=== PATIENT | male | born 1940 | race Caucasian/White ===

== ENCOUNTER → 2019-07-17 | Outpatient (CLI) | payer OTHER, BC ==
[2019-07-17 11:50] LABS: CREATININE 1.2 mg/dL (0.7-1.3)
== END ==
LOC: CAT 08:54 → SJCVCIMAG 08:54
PROVIDERS: Internal Medicine
DX: I65.23 Occlusion and stenosis of bilateral carotid arteries (principal); E04.2 Nontoxic multinodular goiter; I71.4 Abdominal aortic aneurysm, without rupture; I10 Essential (primary) hypertension; I73.9 Peripheral vascular disease, unspecified; I25.10 Atherosclerotic heart disease of native coronary artery without angina pectoris; E78.00 Pure hypercholesterolemia, unspecified; E11.9 Type 2 diabetes mellitus without complications

== ENCOUNTER → 2019-08-13 | Outpatient (CLI) | payer OTHER ==
[2019-08-13 10:37] LABS: CREATININE 1.3 mg/dL (0.7-1.3)
== END ==
LOC: CAT 08:34
PROVIDERS: ATTEND Family Medicine
DX: R59.0 Localized enlarged lymph nodes (principal); M25.78 Osteophyte, vertebrae

== ENCOUNTER → 2020-04-07 | Outpatient (CLI) | payer OTHER, BC ==
[~2020-04-07] MED LIST: ACETAMINOPHEN500 MG PO; ANDROGEL1.25 GM TOP; ASA81BEC PO; BYSTOLIC 5 MG5 MG PO; GLUMETZA500 PO; LIPITOR40 MG PO; LISINOPRIL-HCT1 EAC1 PO; PROTONIX40 M2 PO; TRAMADOL 50 MG50 MG PO; ULTRAM 50MG TAB50 MG PO; VITAMIN D325 MC3 PO
== END ==
LOC: LAB 09:45
PROVIDERS: ATTEND Specialist
DX: Z01.812 Encounter for preprocedural laboratory examination (principal); Z20.822 Contact with and (suspected) exposure to COVID-19

== ENCOUNTER → 2020-04-11 | Outpatient (CLI) | payer OTHER, BC ==
[~2020-04-11] VITALS: Ht 172.7 cm; Wt 95.3 kg
--- NOTE | 2020-04-15 16:06 | PATH ---
[facility] [place] [address] PATHOLOGY RPT PROCEDURE Name: SANDER EWING Room #: REG UZAIR MLuciano.#: [id number] Admission: 04/11/20 Date of : 44 Discharge: Report #: [id number] Path Case #: [id number] [facility] Accession Number: [id number] . 01 Material submitted: . colon - DESCENDING COLON POLYP. Modifiers: descending . 01 Clinical history: . HX OF POLYPS . 02 Diagnosis: Polyp, descending colon polyp, endoscopic biopsy: - Hyperplastic polyp. - Negative for dysplasia. . (IUV:mml; 04/15/2020) [facility] 04/15/2020 1328 Local . 02 Electronically signed: . Sarah Taylor MD, Pathologist NPI- [id number] . 01 Gross description: . The specimen is received in formalin, labeled "Sander Ewing, biopsy descending colon polyp". Received are three segments of pale jara soft tissue ranging in size from 0.1 to 0.3 cm in maximum dimensions. The specimen is submitted entirely in cassette A1. (CAA; 04/14/2020) QAC/QAC 04/14/2020 1101 Local . 02 Pathologist provided ICD-10: K63.5 . 02 CPT . 958402 Specimen Comment: A courtesy copy of this report has been sent to [phone] Specimen Comment: Report sent to Performed at: [address] [id number] MD Hossein Enrique MD Phone: [phone] Performed at: [address] [id number] MD Sarah Taylor MD Phone: [phone]
--- NOTE | 2020-04-16 08:07 | P ---
[facility] [place] [address] [address] PROCEDURE REPORT Name: SANDER MUHAMMAD Room #: REG UZAIR Acosta#: [id number] Admission: 04/11/20 Attend Phys: Steve Coats Discharge: Date of : 44 Report #: [id number] THIS REPORT FOR: cc: Miguel Ángel Man James A. DO McElhinney, Christian C. MD ~ DATE OF SERVICE: 04/11/2020 PROCEDURE PERFORMED: Colonoscopy with biopsies. HISTORY OF PRESENT ILLNESS: The patient is a 79-year-old male with a history of polyps, last colonoscopy approximately 10 years ago. Denies any symptoms. No family history of colon cancer. DESCRIPTION OF PROCEDURE: The risks and benefits of the procedure were explained to the patient, those risks including but not limited to bleeding, perforation and the risk of sedation. He understood these risks and gave informed consent. Sedation was given using propofol per anesthesia. Next, a digital rectal exam was initially performed, which was normal. Next, using a standard Olympus colonoscope. The scope was placed in the patient's anus and advanced under direct vision to the cecum. The overall prep was good. The cecum and ileocecal valve were normal in appearance. Ascending and transverse colon were normal. In the descending colon, a 3 mm sessile polyp was noted. This was removed with cold forceps, otherwise normal. A few small scattered diverticula were noted in the sigmoid colon, no evidence of inflammation, otherwise normal. The rectal mucosa was normal. On retroflexion, no abnormalities were noted. The scope was then withdrawn and the procedure terminated. The patient tolerated the procedure well. IMPRESSION: 1. Small colonic polyp. 2. Sigmoid diverticulosis. 3. Otherwise, normal colonoscopy. RECOMMENDATIONS: 1. Await biopsy results. 2. If polyp is hyperplastic, repeat in 10 years; if adenomatous polyp, repeat in 5 years. Thank you for allowing me to participate in his care. <ELECTRONICALLY SIGNED> By: Steve Goodman MD 04/16/20 0807 [id number] [id number] Steve Goodman MD /nt
== END | disposition home or self-care (01) ==
LOC: GI 07:51
PROVIDERS: ATTEND Specialist
DX: Z12.11 Encounter for screening for malignant neoplasm of colon (principal); Z86.010 Personal history of colon polyps; K63.5 Polyp of colon; K57.30 Diverticulosis of large intestine without perforation or abscess without bleeding; I10 Essential (primary) hypertension; E78.00 Pure hypercholesterolemia, unspecified; K21.9 Gastro-esophageal reflux disease without esophagitis; E11.9 Type 2 diabetes mellitus without complications; Z96.653 Presence of artificial knee joint, bilateral; Z96.611 Presence of right artificial shoulder joint; Z96.612 Presence of left artificial shoulder joint; Z87.19 Personal history of other diseases of the digestive system
CPT/HCPCS: 62110; 62900

== ENCOUNTER → 2020-04-29 | Outpatient (CLI) | payer OTHER, BC ==
[2020-04-29 08:37] LABS: CREATININE 1.6 mg/dL (0.7-1.3)
== END ==
LOC: SJCVCIMAG 07:24 → LAB 07:24 → SJCVCIMAG 07:42
PROVIDERS: ATTEND Nuclear Medicine Nuclear Cardiology
DX: I65.23 Occlusion and stenosis of bilateral carotid arteries (principal); R00.1 Bradycardia, unspecified; I71.4 Abdominal aortic aneurysm, without rupture; I77.9 Disorder of arteries and arterioles, unspecified; I25.10 Atherosclerotic heart disease of native coronary artery without angina pectoris; E78.00 Pure hypercholesterolemia, unspecified; E11.22 Type 2 diabetes mellitus with diabetic chronic kidney disease; I12.9 Hypertensive chronic kidney disease with stage 1 through stage 4 chronic kidney disease, or unspecified chronic kidney disease; N18.9 Chronic kidney disease, unspecified; Z86.16 Personal history of COVID-19; E78.5 Hyperlipidemia, unspecified; Z95.828 Presence of other vascular implants and grafts; Z88.8 Allergy status to other drugs, medicaments and biological substances; Z79.84 Long term (current) use of oral hypoglycemic drugs; Z79.82 Long term (current) use of aspirin; Z79.899 Other long term (current) drug therapy; Z82.49 Family history of ischemic heart disease and other diseases of the circulatory system

== ENCOUNTER 2020-12-20 16:36 | Inpatient (IN) | payer OTHER, BC ==
[~2020-12-20] VITALS: Ht 170.2 cm; Wt 99.8 kg
[2020-12-20 16:48] VITALS: BP 118/79
[2020-12-20 17:33] LABS: ABSOLUTE NEUTROPHILS 3.3 thou/uL (1.4-8.2); BASOPHILS 0.2 % (0.0-2.0); EOSINOPHILS 1.2 % (0.0-3.0); HEMATOCRIT 45.5 % (42.0-52.0); HEMOGLOBIN 15.2 gm/dL (14.0-18.0); LYMPHOCYTES 15.9 % (24.0-44.0); MCH 31.2 pg (26.0-34.0); MCHC 33.3 g/dL (28.0-37.0); MCV 93.4 fL (80.0-100.0); PLATELET COUNT 162 thou/uL (150-400); POLYS 71.7 % (36.0-66.0); RBC 4.87 mil/uL (4.50-6.00); RDW 14.7 % (10.5-14.5); WBC 4.6 thou/uL (4.0-11.0)
[2020-12-20 17:38] LABS: CALCIUM 8.9 mg/dL (8.5-10.1); CREATININE 1.5 mg/dL (0.7-1.3)
[2020-12-20 17:44] LABS: ALBUMIN 3.2 g/dL (3.4-5.0); TOTAL BILIRUBIN 0.7 mg/dL (0.2-1.0); TOTAL PROTEIN 8.1 g/dL (6.4-8.2)
[2020-12-20 21:29] VITALS: BP 108/59
--- NOTE | 2020-12-20 23:02 | NUR ---
PT CONTINUES ON 2.0 LITERS N/C. HE IS RELAXED WITH HIS BREATHING. REQUESTED A SNACK. HE IS TAKING SOME YOGURT AND CHICKEN BROTH. ORIENTED TO ROOM AND SURROUNDINGS. CAREPLAN INITIATED. INSTRUCTED TO USE THE URINAL. INSTRUCTED TO CALL FOR ASSIST OUT OF BED.
[2020-12-21] VITALS (7 sets, daily range): BP systolic 119–169; BP diastolic 61–81
[2020-12-21 03:55] LABS: CALCIUM 8.6 mg/dL (8.5-10.1); CREATININE 1.4 mg/dL (0.7-1.3); POTASSIUM 4.2 mmol/L (3.5-5.1)
[2020-12-21 04:12] LABS: CHOLESTEROL 125 mg/dL (<200); HDL CHOLESTEROL 30 mg/dL (>40); LDL CHOLESTEROL 65 mg/dL (<100); TC:HDL 4.2 Ratio (Not establshd); TRIGLYCERIDE 151 mg/dL (<150); VLDL 30 mg/dL (<40)
[2020-12-21 04:13] LABS: SERUM ASSESSMENT Clear
[2020-12-21 04:35] LABS: HEMATOCRIT 44.1 % (42.0-52.0); HEMOGLOBIN 14.6 gm/dL (14.0-18.0); MCH 31.4 pg (26.0-34.0); MCHC 33.1 g/dL (28.0-37.0); MCV 94.9 fL (80.0-100.0); RBC 4.65 mil/uL (4.50-6.00); RDW 14.9 % (10.5-14.5); WBC 2.4 thou/uL (4.0-11.0)
--- NOTE | 2020-12-21 13:09 | NUR ---
COVID PCR COLLECTED AND SENT TO LAB, PT TOLERATED WELL.
--- NOTE | 2020-12-21 16:39 | NUR ---
PT ALERT AND ORIENTED X 4. PT PLEASANT AND COOPERATIVE. PT ON 2L NC, WITH NO SOA WITH ACTIVITY. PT INDEPENDANT TO BATHROOM OR USES URINAL AT BEDSIDE. DENIES PAIN. WILL CONTINUE TO MONITOR.
--- NOTE | 2020-12-21 17:57 | NUR ---
PT WENT TO THE RESTROOM WITHOUT OXYGEN, HE DESATURATED AND HAD DIFFICULTY BREATHING WHILE TALKING. SATURATION DIPPED TO 86% WITHOUT OXYGEN. REAPPLIED 2L RATE AT 91% INCREASED TO 3 L, STILL AT 91%. DR VAN RECOMMENDS OXYGEN TITRATION FOR SATS TO 94%. PT IS NOW ON 6 L NC.
--- NOTE | 2020-12-21 18:48 | NUR ---
LAB CALLED TO REPORT POSTIVE COVID PCR
[2020-12-22 02:06] LABS: GLYCOHEMOGLOBIN (HGB A1C) 7.1 % (4.8-5.6)
[2020-12-22 05:04] VITALS: BP 122/62
[2020-12-22 05:37] LABS: ABSOLUTE NEUTROPHILS 4.5 thou/uL (1.4-8.2); BASOPHILS 0.2 % (0.0-2.0); HEMATOCRIT 41.6 % (42.0-52.0); HEMOGLOBIN 13.8 gm/dL (14.0-18.0); LYMPHOCYTES 9.6 % (24.0-44.0); MCH 31.3 pg (26.0-34.0); MCHC 33.2 g/dL (28.0-37.0); MCV 94.3 fL (80.0-100.0); MONOCYTES 7.3 % (1.0-8.0); PLATELET COUNT 188 thou/uL (150-400); POLYS 82.9 % (36.0-66.0); RDW 14.8 % (10.5-14.5); WBC 5.5 thou/uL (4.0-11.0)
[2020-12-22 05:56] LABS: INR 1.03; PROTIME 11.2 Seconds (10.5-12.1)
[2020-12-22 06:00] LABS: ALBUMIN 2.7 g/dL (3.4-5.0); CALCIUM 8.1 mg/dL (8.5-10.1); CREATININE 1.2 mg/dL (0.7-1.3); DIRECT BILIRUBIN 0.1 mg/dL (<0.1-0.2); PHOSPHORUS 2.5 mg/dL (2.5-4.9); POTASSIUM 3.6 mmol/L (3.5-5.1); TOTAL BILIRUBIN 0.4 mg/dL (0.2-1.0); TOTAL PROTEIN 6.9 g/dL (6.4-8.2)
--- NOTE | 2020-12-22 06:49 | NUR ---
PT MAKING SLOW PROGRESS TOWARDS GOALS. ON O2 AT 6L PER NC OVERNIGHT. DIENED ANY SOA WHILE AT REST. OCCASIONAL COUGH WITH OCCASIONAL PRODUCTIVE SPUTUM.
[2020-12-22 07:09] VITALS: BP 120/72
--- NOTE | 2020-12-22 07:31 | EKG ---
[address] [address] ELECTROCARDIOGRAM REPORT Name: SANDER MUHAMMAD Room #: 355-P ADM IN M.R.#: [id number] Admission: 12/20/20 Attend Phys: Gavin De Leon MD Discharge: Date of : 44 Report #: [id number] [facility] ED Test Date: 2020-12-20 Test Time: 16:48:35 Pat Name: SANDER MUHAMMAD Department: Room: 355 P Gender: M [employer] Director: DONNELL : 1940 Requested By: Frankie Cole Order Number: [id number] : Wilder Bansal Measurements Intervals [place] Rate: 68 P: 45 WY: 152 QRS: 5 QRSD: 86 T: 14 QT: 391 QTc: 416 Interpretive Statements Sinus rhythm No previous ECG available for comparison Electronically Signed On 12-22-2020 7:30:43 CDT by Wilder Bansal [email or web address] <ELECTRONICALLY SIGNED> By: Wilder Bansal MD, [facility] 12/22/20 0730 1648 1648 Wilder Bansal MD, FACC /EPI
[2020-12-22 11:26] VITALS: BP 129/77
[2020-12-22 15:14] VITALS: BP 113/70
[2020-12-22 19:36] VITALS: BP 124/69
[2020-12-23 03:20] VITALS: BP 100/57
--- NOTE | 2020-12-23 05:16 | NUR ---
PT MAKING SLOW PROGRESS TOWARD GOALS. PT REPORTED THIS AM THAT HE HAD SOME BLOOD TINGED SPUTUM THIS MORNING. STATES IT WAS A VERY SMALL THIN LINE. DID COUGH WHILE THIS RN WAS PRESENT IN THE ROOM AND 3 SMALL BALL POINT PIN SIZE FLECKS OF BLOOD WERE OBSERVED. ENCOURAGED TO REPORT ANY FURTHER BLOOD TINGED SPUTUM ESPECIALLY IF THE AMOUNTS ARE GREATER. ON O2 AT 6L PER NC OVERNIGHT. SEE VS.
[2020-12-23 06:10] LABS: ABSOLUTE NEUTROPHILS 4.2 thou/uL (1.4-8.2); BASOPHILS 0.2 % (0.0-2.0); HEMATOCRIT 39.1 % (42.0-52.0); HEMOGLOBIN 12.9 gm/dL (14.0-18.0); LYMPHOCYTES 10.8 % (24.0-44.0); MCH 31.2 pg (26.0-34.0); MCHC 33.1 g/dL (28.0-37.0); MCV 94.4 fL (80.0-100.0); PLATELET COUNT 188 thou/uL (150-400); RBC 4.14 mil/uL (4.50-6.00); RDW 14.5 % (10.5-14.5); WBC 5.3 thou/uL (4.0-11.0)
[2020-12-23 06:50] LABS: ALBUMIN 2.4 g/dL (3.4-5.0); CALCIUM 7.7 mg/dL (8.5-10.1); CREATININE 1.1 mg/dL (0.7-1.3); DIRECT BILIRUBIN 0.1 mg/dL (<0.1-0.2); PHOSPHORUS 2.4 mg/dL (2.5-4.9); POTASSIUM 3.8 mmol/L (3.5-5.1); TOTAL BILIRUBIN 0.3 mg/dL (0.2-1.0); TOTAL PROTEIN 5.9 g/dL (6.4-8.2)
[2020-12-23 07:08] LABS: HIV ANTIBODY Non Reactive (Non Reactive)
[2020-12-23 07:42] VITALS: BP 110/48
[2020-12-23 11:20] VITALS: BP 111/56
--- NOTE | 2020-12-23 15:07 | NUR ---
INITIAL ASSESSMENT: SW reviewed chart and spoke with nursing and attending physician. Pt was admitted from home due to COVID. Pt placed in Enhanced Isolation. Pt has received the Moderna COVID vaccination. Pt recently returned from a trip to [place] on 12/14/2020. Pt with hx of DM and HTN. Pt is afebrile and on 6L of O2. Pt is on IV abx and IV steroids. COVID meds started. SW has placed several calls to pt's room. No answer. Per chart, pt is alert/orientated x 4. Pt lives at home. Pt's PCP is Dr. Miguel Ángel Man. SW is following to assist as needed with discharge planning.
[2020-12-23 16:02] VITALS: BP 138/66
[2020-12-23 19:02] VITALS: BP 135/69
--- NOTE | 2020-12-23 23:30 | NUR ---
PT MAKING SLOW PROGRESS TOWARDS GOALS. PT REPORTING THAT HE STILL HAS VERY SMALL AMOUNT OF BLEEDING FROM HIS NOSE. PT DID ROLL UP A TISSUE AND PLACE IN HIS LEFT NARE AND PULL A VERY SMALL AMOUNT OF BRIGHT RED BLOOD. NOTED LOVENOX REMAINS ON HOLD PER M.A.R. SPOKE TO JEIMY. WILL REPORT TO DAY RN, FOR MD TO EVAL NEED FOR BLOOD THINNERS.
[2020-12-24 03:13] VITALS: BP 124/73
--- NOTE | 2020-12-24 04:24 | NUR ---
PT MAKING PROGRESS TOWARDS GOALS. PT REPORTING THIS AM THAT WHEN HE COUGHS IN TO A TISSUE HE HAS STILL SEEN TINY AMOUNTS OF BLOOD. WILL INFORM DAY RN TO HAVE MD MARTINEZ LOVENOX DOSING. ON O2 AT 4L PER NC OVERNIGHT WHILE SLEEPING. PT STATED THAT HE FEELS HE IS BREATHING WELL THIS MORNING. AMBULATION AROUND THE ROOM ENCOURAGED TOLERATE.
[2020-12-24 06:00] LABS: ABSOLUTE NEUTROPHILS 4.4 thou/uL (1.4-8.2); BASOPHILS 0.1 % (0.0-2.0); HEMATOCRIT 38.6 % (42.0-52.0); HEMOGLOBIN 12.9 gm/dL (14.0-18.0); LYMPHOCYTES 10.9 % (24.0-44.0); MCH 31.4 pg (26.0-34.0); MCHC 33.3 g/dL (28.0-37.0); MCV 94.2 fL (80.0-100.0); MONOCYTES 8.9 % (1.0-8.0); PLATELET COUNT 200 thou/uL (150-400); POLYS 80.1 % (36.0-66.0); RDW 14.7 % (10.5-14.5); WBC 5.5 thou/uL (4.0-11.0)
[2020-12-24 06:19] LABS: ALBUMIN 2.4 g/dL (3.4-5.0); CALCIUM 7.8 mg/dL (8.5-10.1); DIRECT BILIRUBIN 0.1 mg/dL (<0.1-0.2); PHOSPHORUS 2.3 mg/dL (2.5-4.9); POTASSIUM 3.8 mmol/L (3.5-5.1); TOTAL BILIRUBIN 0.4 mg/dL (0.2-1.0); TOTAL PROTEIN 5.9 g/dL (6.4-8.2)
[2020-12-24 07:51] VITALS: BP 129/67
--- NOTE | 2020-12-24 15:14 | NUR ---
SW reviewed chart and spoke with nursing and attending physician. Pt remains in Enhanced Isolation due to COVID. Pt is afebrile and on 4L of O2. Pt is on IV abx and IV steroids. Pt is also completing course of COVID meds. SW placed call to pt's room. No answer. SW spoke with pt via his cell phone: [phone]. Introduced role of SW. Pt is alert/orientated x 4. Pt reports he lives at home alone. Prior to admission, pt was independent with ADLs. Pt does have a cane to use if needed. Pt has used HH in the past following knee surgeries, but is unsure name of HH provider. No hx of post-acute placement. Pt's PCP is Dr. Man. Quality Assurance Coordinator is Dr. Orozco. Pt states he tested negative prior to leaving [place] the [place] and the tested positive on Sat. 12/20. Pt's plan is to discharge home when medically stable. SW is following to assist as needed with discharge planning.
[2020-12-24 15:32] VITALS: BP 130/64
--- NOTE | 2020-12-24 19:51 | NUR ---
A/O X4. UP AD JULIO C 5L/NC. PROGRESSING TOWARDS POC GOALS.
[2020-12-24 20:36] VITALS: BP 135/64
[2020-12-25 04:06] VITALS: BP 141/52
--- NOTE | 2020-12-25 06:27 | NUR ---
PT CURRENTLY ON 5L 02 AND MAINTAINING 02 SATURATIONS IN HIGH 90'S. PT STATED HE DID NOT WANT TO BE WOKEN UP OVERNIGHT AND WANTED TO SLEEP. VSS AND PT VOIDS VIA URINAL. ISOLATION PRECAUTIONS IN PLACE.
[2020-12-25 06:34] LABS: HEMATOCRIT 38.1 % (42.0-52.0); HEMOGLOBIN 12.7 gm/dL (14.0-18.0); MCH 31.2 pg (26.0-34.0); MCHC 33.2 g/dL (28.0-37.0); MCV 93.8 fL (80.0-100.0); PLATELET COUNT 201 thou/uL (150-400); RBC 4.07 mil/uL (4.50-6.00); RDW 14.8 % (10.5-14.5); WBC 5.6 thou/uL (4.0-11.0)
[2020-12-25 07:52] VITALS: BP 144/69
[2020-12-25 09:14] LABS: ALBUMIN 2.3 g/dL (3.4-5.0); ANION GAP 9 mmol/L (7-16); BUN 20 mg/dL (7-18); CALCIUM 7.9 mg/dL (8.5-10.1); CHLORIDE 108 mmol/L (98-107); CO2 24 mmol/L (21-32); CREATININE 0.9 mg/dL (0.7-1.3); DIRECT BILIRUBIN < 0.1 mg/dL (<0.1-0.2); GLUCOSE 159 mg/dL (74-106); PHOSPHORUS 2.8 mg/dL (2.5-4.9); POTASSIUM 4.5 mmol/L (3.5-5.1); SGOT 22 U/L (15-37); SGPT 42 U/L (30-65); SODIUM 141 mmol/L (136-145); TOTAL BILIRUBIN 0.4 mg/dL (0.2-1.0); TOTAL PROTEIN 5.7 g/dL (6.4-8.2)
[2020-12-25 13:05] LABS: ABSOLUTE NEUTROPHILS 5.2 thou/uL (1.4-8.2)
[2020-12-25 15:36] VITALS: BP 133/63
[2020-12-25 20:00] VITALS: BP 150/78
[2020-12-26 04:45] VITALS: BP 135/75
--- NOTE | 2020-12-26 06:23 | NUR ---
PT ALERT AND ORIENTED X 4. CURRENTLY PT IS ON 2L O2 NC. PT'S VSS. PT UP AT JULIO C AND VOIDS VIA URINAL. PT PROGRESSING TOWARDS POC GOALS. WILL CONTINUE TO MONITOR.
[2020-12-26 06:58] LABS: HEMATOCRIT 38.7 % (42.0-52.0); HEMOGLOBIN 12.9 gm/dL (14.0-18.0); MCH 31.2 pg (26.0-34.0); MCHC 33.3 g/dL (28.0-37.0); MCV 93.8 fL (80.0-100.0); RBC 4.13 mil/uL (4.50-6.00); RDW 14.6 % (10.5-14.5); WBC 6.8 thou/uL (4.0-11.0)
[2020-12-26 07:26] LABS: CALCIUM 8.1 mg/dL (8.5-10.1); MAGNESIUM 1.9 mg/dL (1.8-2.4); POTASSIUM 4.5 mmol/L (3.5-5.1)
[2020-12-26 07:43] VITALS: BP 139/66
[2020-12-26 10:17] LABS: T-SPOT.TB Negative
--- NOTE | 2020-12-26 13:44 | NUR ---
PT IS ALERT AND ORIENTED X4. PT IS TOLERATING ROOM AIR AT THIS TIME AND STATES CHRISTOPHER HE FEELS BETTER. PT IS SB ON THE MONITOR. UP AD JULIO C TO THE CHAIR. VOIDS PER URINAL. NO COMPLAINTS OF PAIN OR DISCOMFORT AT THIS TIME. WILL CONTINUE TO MONITOR.
--- NOTE | 2020-12-26 15:22 | NUR ---
SW reviewed chart and spoke with nursing and attending physician. Pt remains in Enhanced Isolation due to COVID. Pt is afebrile and off O2. Pt is progressing towards goals for discharge home. Discharge is anticipated for tomorrow. PT/OT evals completed. Pt will not have any discharge needs at this time. GIBSON placed call to pt's room. No answer. SW is available to assist should needs arise.
[2020-12-26 15:41] VITALS: BP 155/73
[2020-12-26 19:55] VITALS: BP 144/70
[2020-12-26 20:00] VITALS: BP 114/54
--- NOTE | 2020-12-27 03:44 | NUR ---
PT IS ALERT AND ORIENTED X 4. PT IS CURRENTLY ON ROOM AIR AND TOLERATING IT WELL. VITAL SIGNS STABLE OVERNIGHT. PT IS UP AD JULIO C TO TOILET. PT IS PENDING POSSIBLE D/C ON 12/27/20. WILL CONTINUE TO MONITOR.
[2020-12-27 04:40] VITALS: BP 125/58
[2020-12-27 05:34] LABS: HEMATOCRIT 39.9 % (42.0-52.0); HEMOGLOBIN 13.6 gm/dL (14.0-18.0); MCH 31.9 pg (26.0-34.0); MCHC 34.1 g/dL (28.0-37.0); MCV 93.6 fL (80.0-100.0); RBC 4.26 mil/uL (4.50-6.00); RDW 14.7 % (10.5-14.5); WBC 8.1 thou/uL (4.0-11.0)
[2020-12-27 06:02] LABS: CALCIUM 7.9 mg/dL (8.5-10.1); MAGNESIUM 1.8 mg/dL (1.8-2.4); POTASSIUM 4.6 mmol/L (3.5-5.1)
[2020-12-27 07:30] VITALS: BP 135/73
[2020-12-27] MEDS ORDERED: ASPIRIN EC325 M1 PO (08:47)
[2020-12-27] MEDS ORDERED: DEXAMETHASONE6 MG PO (08:48)
[2020-12-27 10:09] VITALS: BP 135/73
--- NOTE | 2020-12-27 10:59 | NUR ---
PT IS ALERT AND ORIENTED X4. S ERNESTO THE MONITOR AND ROOM AIR. NO COMPLAINTS OF PAIN OR DISCOMFORT AT THIS TIME. REVIEWED DISCHARGE INSTRUCTIONS WITH PT. PT VERBALIZED UNDERSTANDING OF INSTRUCTIONS. SENT PAPER PRESCRIPTIONS TO PT PER PT REQUEST. PT CURRENTLY WAITING FOR RIDE HOME TO ARRIVE. WILL CONTINUE TO MONITOR.
--- NOTE | 2020-12-27 12:30 | NUR ---
PT LEFT VIA WHEELCHAIR TO EXIT. FRIEND IS DRIVING. IV DISCONTINUED. PT HAS BELONGINGS.
== END 2020-12-27 12:33 | disposition home or self-care (01) | DRG 177 ==
LOC: ER 16:36 → 3W 20:38 → EROBS 20:38 → 3W 21:27
PROVIDERS: Internal Medicine; Nurse Practitioner; Nurse Practitioner Family; Specialist; ADMIT Hospitalist; ATTEND Hospitalist
PROC: XW033E5 Introduction of Remdesivir Anti-infective into Peripheral Vein, Percutaneous Approach, New Technology Group 5 (ICD-10-PCS; principal; 2020-12-21)
PROC: 5A0935A Assistance with Respiratory Ventilation, Less than 24 Consecutive Hours, High Flow/Velocity Cannula (ICD-10-PCS; 2020-12-22)
DX: U07.1 COVID-19 (principal); J12.82 Pneumonia due to coronavirus disease 2019; J96.01 Acute respiratory failure with hypoxia; N17.9 Acute kidney failure, unspecified; E78.00 Pure hypercholesterolemia, unspecified; Z96.612 Presence of left artificial shoulder joint; Z96.611 Presence of right artificial shoulder joint; Z96.653 Presence of artificial knee joint, bilateral; K21.9 Gastro-esophageal reflux disease without esophagitis; E78.5 Hyperlipidemia, unspecified; N18.9 Chronic kidney disease, unspecified; E11.22 Type 2 diabetes mellitus with diabetic chronic kidney disease; I12.9 Hypertensive chronic kidney disease with stage 1 through stage 4 chronic kidney disease, or unspecified chronic kidney disease; E66.9 Obesity, unspecified; Z68.34 Body mass index [BMI] 34.0-34.9, adult; Z79.82 Long term (current) use of aspirin; Z87.891 Personal history of nicotine dependence; Z79.899 Other long term (current) drug therapy; Z23 Encounter for immunization
CPT/HCPCS: 10879

== ENCOUNTER → 2021-01-20 | Outpatient (CLI) | payer OTHER, BC ==
[~2021-01-20] MED LIST changes: +ASPIRIN EC325 M1 PO; +DEXAMETHASONE6 MG PO
== END ==
LOC: SJCVCIMAG 10:10 → SJCVC 15:28
PROVIDERS: ATTEND Internal Medicine Cardiovascular Disease
DX: I65.23 Occlusion and stenosis of bilateral carotid arteries (principal); I25.10 Atherosclerotic heart disease of native coronary artery without angina pectoris; I12.9 Hypertensive chronic kidney disease with stage 1 through stage 4 chronic kidney disease, or unspecified chronic kidney disease; E11.22 Type 2 diabetes mellitus with diabetic chronic kidney disease; N18.9 Chronic kidney disease, unspecified; I77.9 Disorder of arteries and arterioles, unspecified; E11.9 Type 2 diabetes mellitus without complications; E04.1 Nontoxic single thyroid nodule; I71.4 Abdominal aortic aneurysm, without rupture; I72.3 Aneurysm of iliac artery; U07.1 COVID-19; E78.5 Hyperlipidemia, unspecified; Z95.828 Presence of other vascular implants and grafts; Z72.89 Other problems related to lifestyle; Z79.84 Long term (current) use of oral hypoglycemic drugs; Z79.899 Other long term (current) drug therapy